=== PATIENT | male | born 1930 | race African-American/Black ===

== ENCOUNTER 2019-03-10 12:00 | Inpatient (IN) | payer BC, OTHER ==
[~2019-03-10] VITALS: Ht 182.9 cm; Wt 83.0 kg
[2019-03-10 12:03] VITALS: BP 165/60
[2019-03-10] MEDS ORDERED: FLOMAX0.4 MG PO (12:07)
[2019-03-10] MEDS ORDERED: LISINOPRIL40 MG PO (12:19)
[2019-03-10] MEDS ORDERED: CARVEDILOL25 MG PO (12:19)
[2019-03-10] MEDS ORDERED: HYDROCHLOROTH12.5 M2 PO (12:20)
[2019-03-10] MEDS ORDERED: LIPITOR40 MG PO (12:20)
[2019-03-10 12:27] LABS: ABSOLUTE EOSINOPHILS 0.2 thou/uL (0.0-0.7); ABSOLUTE LYMPHOCYTES 1.6 thou/uL (0.8-5.3); ABSOLUTE MONOCYTES 0.5 thou/uL (0.0-1.2); ABSOLUTE NEUTROPHILS 4.6 thou/uL (1.6-8.1); BASOPHILS 0.2 %; EOSINOPHILS 3.2 %; HEMATOCRIT 32.4 % (42.0-52.0); LYMPHOCYTES 23.2 %; MCH 29.1 pg (26.0-34.0); MCHC 33.9 g/dL (28.0-37.0); MCV 85.8 fL (80.0-100.0); MONOCYTES 6.7 %; MPV 9.4 fl. (7.2-11.1); NUCLEATED RBCS 0 /100WBC; PLATELET COUNT* 123 thou/uL (150-400); POLYS 66.7 %; RBC 3.78 mil/uL (4.50-6.00); RDW-CV 14.5 % (10.5-14.5); WBC 6.9 thou/uL (4.0-11.0)
[2019-03-10 12:34] LABS: ANION GAP 9 mmol/L (7-16); BUN 33 mg/dL (7-18); CALCIUM 8.6 mg/dL (8.5-10.1); CHLORIDE 107 mmol/L (98-107); CO2 27 mmol/L (21-32); CREATININE 1.9 mg/dL (0.6-1.3); GLUCOSE 130 mg/dL (70-99); POTASSIUM 3.6 mmol/L (3.5-5.1); SODIUM 143 mmol/L (136-145)
[2019-03-10 12:43] LABS: ALBUMIN 3.3 g/dL (3.4-5.0); ALKALINE PHOSPHATASE 44 U/L (46-116); LIPASE 53 U/L (73-393); SGOT 13 U/L (15-37); SGPT 16 U/L (30-65); TOTAL PROTEIN 6.8 g/dL (6.4-8.2); TROPONIN-I LEVEL <0.06 ng/mL (<0.06)
[2019-03-10 12:45] LABS: APTT 24.7 Seconds (25.0-31.3); INR 1.1; PROTIME 11.1 Seconds (9.20-11.50)
[2019-03-10 17:42] VITALS: BP 157/62
[2019-03-10 17:57] LABS: URINE BILIRUBIN NEGATIVE (Negative); URINE BLOOD NEGATIVE (Negative); URINE CLARITY CLEAR; URINE COLOR YELLOW; URINE GLUCOSE-RANDOM NEGATIVE (Negative); URINE KETONES NEGATIVE (Negative); URINE LEUKOCYTES-REFLEX NEGATIVE (Negative); URINE NITRITE-REFLEX NEGATIVE (Negative); URINE PROTEIN NEGATIVE (Negative); URINE SPECIFIC GRAVITY 1.015 (1.005-1.030); URINE UROBILINOGEN 0.2 E.U./dl (0.2-1.0)
[2019-03-10 18:11] VITALS: BP 175/72
[2019-03-11] VITALS: BP 165/68
[2019-03-11 04:30] VITALS: BP 142/66
[2019-03-11 05:40] LABS: CALCIUM 8.5 mg/dL (8.5-10.1); CREATININE 1.7 mg/dL (0.6-1.3); MAGNESIUM 1.4 mg/dL (1.8-2.4); PHOSPHORUS* 2.9 mg/dL (2.5-4.9)
--- NOTE | 2019-03-11 05:43 | NUR ---
PATIENT ADMITTED TO UNIT AT APPROX 1745. INTERFACE DEVELOPER ASSESSMENT COMPLETED DOCUMENTED. PATIENT AND SPOUSE VERBALIZED UNDERSTANDING OF ADMISSION AND PLAN OF CARE. NO COMPLAINTS OF PAIN OR DISCOMFORT NOTED. HOURLY ROUNDING COMPLETED CHARTED.
[2019-03-11 08:20] VITALS: BP 140/61
--- NOTE | 2019-03-11 09:49 | NUR ---
ASSUMED CARE OF PT THIS AM AROUND 07- BEACH ATTENDANT IN PLACE ORDERED, TRACING SB- UPON ASSESSMENT PT NOTED TO BE RESTING IN BED- PT A&O X4- CONTINENT OF BOWEL AND BLADDER- SBA WITH TRANSFERS- LCTA/DIMINISHED IN BASES; RESP EVEN AND UN-LABORED- VSS, O2 SAT 96% ON RA- ABD SOFT/ROUND/NON-TENDER, BS X4 QUADS- LAST BM REPORTED 03/10/19- IV NOTED TO LEFT AC INTACT, IVF INFUSSING- NPO THIS AM, CURRENLTY OFF UNIT FOR ORDERED US- PER CARDIOLOGY THIS AM COREG DECREASED TO 12.5 BID, AND HYDROCHLOROTIAZIDE INCREASED TO 25MG DAILY- PT DENIES ANY C/O PAIN/DISCOMFRT AT THIS TIME- CALL LIGHT AND PERSONAL BELONGINGS WITH IN REACH- HOURLY ROUNDS IN PLACE R/T SAFETY/NEEDS- ALL NEEDS MET AT THIS TIME-WCTM
[2019-03-11 12:00] VITALS: BP 156/63
--- NOTE | 2019-03-11 15:37 | NUR ---
WAS ASKED TO CHECK COPAY FOR ELIQUIS 10MG BID X7 AND THEN 5MG BID FOR REMAINDER OF MONTH. CALLED IN TO [facility]. COPAY THRU PRIMARY COVERAGE WAS $43.50, THEY WERE NOT ABLE TO RUN THRU PT'S AT THIS TIME. UPDATED CM AND NURSE TO DISCUSS WTIH PT
[2019-03-11 16:00] VITALS: BP 116/53
[2019-03-11 16:14] VITALS: BP 156/63
--- NOTE | 2019-03-11 16:38 | NUR ---
SW met with pt and pt . Pt and pt expressed that there are no dc needs anticipated. Pt lives at home with and is independent in all mobility and ADL tasks at home.
[2019-03-11] MEDS ORDERED: ELIQUIS5 MG PO (17:23)
[2019-03-11] MEDS ORDERED: COREG6.25 MG PO (17:24)
[2019-03-11] MEDS ORDERED: PANTOPRAZOLE SO40 M1 PO (17:25)
--- NOTE | 2019-03-11 18:42 | NUR ---
ORDERS RECEIEVIED FOR OKAY TO D/C TO HOME WITH FOLLOW UP WITH CARDIOLOGY OP THIS SHIFT PER - MG NOTED TO BE 1.4 WITH 1 IV BAG GIVEN PRIOR TO D/C INSTRUCTED- IV TO LEFT AC D/C'D ALONG WITH STAMP PAD MAKER PRIOR TO D/C- D/C TEACHING/EDUCATION/NEEDED FOLLOW UP'S COMMUNICATED TO PT AND WITH ALL QUESTIONS AND CONCERNS ADDRESSED PRIOR TO D/C- WRITTEN EDUCATION ALONG WITH SCRIPTS PROVIDED TO PT PRIOR TO D/C-COUPON FOR NEW ELIQUIS PROVDED PER CM THIS SHIFT- BELONGINGS PACKED AND ACCOUNTED FOR PER PT - PT ESCORTED PER TECH VIA W/C WITH BELONGINGS; AT SIDE TO VEHICLE AT 1840- NO PROBLEMS TO NOTE AT TIME OF D/C
== END 2019-03-11 18:46 | disposition home or self-care (01) | DRG 176 ==
LOC: M.ERS 12:00 → M.TBA-ER 14:36 → M.2W 14:36
PROVIDERS: Family Medicine; ADMIT Family Medicine
DX: I26.99 Other pulmonary embolism without acute cor pulmonale (principal); I10 Essential (primary) hypertension; E78.5 Hyperlipidemia, unspecified; R00.1 Bradycardia, unspecified; T50.905A Adverse effect of unspecified drugs, medicaments and biological substances, initial encounter; D64.9 Anemia, unspecified; N40.0 Benign prostatic hyperplasia without lower urinary tract symptoms; I73.9 Peripheral vascular disease, unspecified; Z88.0 Allergy status to penicillin; Z88.8 Allergy status to other drugs, medicaments and biological substances; Z79.899 Other long term (current) drug therapy; Y92.89 Other specified places as the place of occurrence of the external cause

== ENCOUNTER 2020-06-18 14:58 | Emergency (ER) | payer BC, OTHER ==
[~2020-06-18] VITALS: Ht 182.9 cm; Wt 81.7 kg
[~2020-06-18 14:58] MED LIST: CARVEDILOL25 MG PO; COREG6.25 MG PO; ELIQUIS5 MG PO; FLOMAX0.4 MG PO; HYDROCHLOROTH12.5 M2 PO; LIPITOR40 MG PO; LISINOPRIL40 MG PO; PANTOPRAZOLE SO40 M1 PO
[2020-06-18] MEDS ORDERED: CARVEDILOL25 MG PO (15:36)
[2020-06-18] MEDS ORDERED: MINOXIDIL2.5 MG PO (15:36)
[2020-06-18] MEDS ORDERED: ELIQUIS2.5 MG PO (15:37)
[2020-06-18] MEDS ORDERED: PREDNISONE 5 MG5 M1 PO (15:37)
[2020-06-18] MEDS ORDERED: NEURONTIN 300M300 M2 PO (15:38)
[2020-06-18 16:31] LABS: ABSOLUTE EOSINOPHILS 0.1 thou/uL (0.0-0.7); ABSOLUTE LYMPHOCYTES 0.9 thou/uL (0.8-5.3); ABSOLUTE MONOCYTES 0.2 thou/uL (0.0-1.2); ABSOLUTE NEUTROPHILS 6.1 thou/uL (1.6-8.1); BASOPHILS 0.3 %; EOSINOPHILS 1.2 %; HEMATOCRIT 30.6 % (42.0-52.0); HEMOGLOBIN 10.1 gm/dL (14.0-18.0); LYMPHOCYTES 12.5 %; MCH 27.9 pg (26.0-34.0); MCHC 32.8 g/dL (28.0-37.0); MONOCYTES 3.1 %; MPV 9.3 fl. (7.2-11.1); NUCLEATED RBCS 0 /100WBC; PLATELET COUNT* 133 thou/uL (150-400); POLYS 82.9 %; RDW-CV 17.9 % (10.5-14.5); WBC 7.4 thou/uL (4.0-11.0)
[2020-06-18 16:40] LABS: CALCIUM 7.8 mg/dL (8.5-10.1); CREATININE 1.5 mg/dL (0.6-1.3); POTASSIUM 3.5 mmol/L (3.5-5.1)
[2020-06-18 16:44] LABS: APTT 26.6 Seconds (25.0-31.3); INR 1.1; PROTIME 11.5 Seconds (9.20-11.50)
[2020-06-18 16:51] LABS: ALBUMIN 3.2 g/dL (3.4-5.0); TOTAL PROTEIN 6.2 g/dL (6.4-8.2)
[2020-06-18] MEDS ORDERED: BUMETANIDE0.5 MG PO (19:33)
[2020-06-18 19:51] VITALS: BP 188/80
--- NOTE | 2020-06-19 09:51 | EKG ---
[place] [address] ELECTROCARDIOGRAM REPORT Name: BETINA PAULA Room: [facility]#: [id number] Admission: 06/18/20 Attend Phys: Discharge: 06/18/20 Date of : [birth year] Date of Service: 06/18/20 1619 Report #: [id number] THIS REPORT FOR: //name// [facility] ED Test Date: 2020-06-18 Test Time: 16:19:16 Pat Name: BETINA PAULA Department: Room: Gender: Data Compiler: BEATRIZ : 1930 Requested By: Deepak Hsu Order Number: [id number] MD: Skip Lopez Measurements Intervals [place] Rate: 55 P: 43 MA: 134 QRS: -32 QRSD: 101 T: 22 QT: 454 QTc: 435 Interpretive Statements Sinus rhythm Left axis deviation Compared to ECG 03/10/2019 12:02:42 Left-axis deviation now present Sinus bradycardia no longer present Electronically Signed On 06-19-2020 9:51:15 FRENCH PROFESSOR by Skip Lopez [email or web address] <ELECTRONICALLY SIGNED> By: Nicholas Lopez MD, FAC 06/19/20 0951 1619 1619 Nicholas Lopez MD, [facility] /EPI
== END 2020-06-18 19:52 | disposition home or self-care (01) ==
LOC: M.ERS 14:58
PROVIDERS: Nurse Practitioner Psychiatric/Mental Health
DX: R60.0 Localized edema (principal); I10 Essential (primary) hypertension; R79.89 Other specified abnormal findings of blood chemistry; E78.00 Pure hypercholesterolemia, unspecified; G62.9 Polyneuropathy, unspecified; Z79.899 Other long term (current) drug therapy; Z88.0 Allergy status to penicillin

== ENCOUNTER → 2020-12-28 | Outpatient (CLI) | payer BC, OTHER ==
[~2020-12-28] MED LIST changes: +BUMETANIDE0.5 MG PO; +ELIQUIS2.5 MG PO; +MINOXIDIL2.5 MG PO; +NEURONTIN 300M300 M2 PO; +PREDNISONE 5 MG5 M1 PO
--- NOTE | 2020-12-28 14:16 | 2DMMODE ---
[place] [address] 2 D/M-MODE ECHOCARDIOGRAM Name: BETINA PAULA Room: [facility]#: [id number] Admission: 12/28/20 Attend Phys: Nicholas Lopez, Discharge: Date of : [birth year] Date of Service: 12/28/20 1415 Report #: [id number] THIS REPORT FOR: cc: Jose Lyman MD, Kevin R. MD Holkins, John M. MD [facility] ~ APPROVED REPORT Study performed: 12/28/2020 08:21:15 EXAM: Comprehensive 2D, Doppler, and color-flow Echocardiogram Patient Location: Out-Patient BSA: 1.88 HR: 63 bpm BP: 140/80 mmHg Other Information Study Quality: Good Indications Congestive Heart Failure 2D Dimensions IVSd: 17.77 (7-11mm) LVOT Diam: 20.14 (18-24mm) LVDd: 34.23 mm PWd: 15.15 (7-11mm) Ascending Ao: 32.15 (22-36mm) LVDs: 20.93 (25-40mm) Aortic Root: 31.96 mm Volumes Left Atrial Volume (Systole) LA ESV Index: 13.90 mL/m2 Aortic Valve AoV Peak Harris.: 0.93 m/s AO Peak Gr.: 3.45 mmHg LVOT Max P.34 mmHg AO Mean Gr.: 2.02 mmHg LVOT Mean P.56 mmHg LVOT Max V: 0.91 m/s AO V2 VTI: 20.41 cm LVOT Mean V: 0.57 m/s JOISAH (VTI): 3.71 cm2 LVOT V1 VTI: 23.76 cm Mitral Valve E/A Ratio: 0.48 [place] [address] 2 D/M-MODE ECHOCARDIOGRAM Name: BETINA PAULA Room: [facility]#: [id number] Admission: 12/28/20 Attend Phys: Nicholas Lopez, Discharge: Date of : [birth year] Date of Service: 12/28/20 1415 Report #: [id number] MV Decel. Time: 488.98 ms MV E Max Harris.: 0.39 m/s MV PHT: 141.80 ms MVA (PHT): 1.55 cm2 TDI E/Lateral E': 6.50 E/Medial E': 7.80 Medial E' Harris.: 0.05 m/s Lateral E' Harris.: 0.06 m/s Pulmonary Valve PV Peak Harris.: 0.76 m/s PV Peak Gr.: 2.33 mmHg Tricuspid Valve RAP Estimate: 5.00 mmHg TR Peak Gr.: 16.07 mmHg RVSP: 21.07 mmHg PA Pressure: 21.07 mmHg Left Ventricle The left ventricle is normal size. There is normal LV segmental wall motion. Moderate concentric left ventricular hypertrophy. Left ventricular systolic function is normal. The left ventricular ejection fraction is within the normal range. LVEF is 60-65%. Grade I - abnormal relaxation pattern. Right Ventricle The right ventricle is normal size. The right ventricular systolic function is normal. Atria Left atrium is mildly dilated. The right atrium size is normal. Aortic Valve Mild aortic valve sclerosis. Trace aortic regurgitation. There is no aortic valvular stenosis. Mitral Valve The mitral valve is normal in structure. Trace mitral regurgitation. No evidence of mitral valve stenosis. Tricuspid Valve The tricuspid valve is normal in structure. Mild tricuspid regurgitation[place] [address] 2 D/M-MODE ECHOCARDIOGRAM Name: BETINA PAULA Room: [facility]#: [id number] Admission: 12/28/20 Attend Phys: Nicholas Lopez, Discharge: Date of : [birth year] Date of Service: 12/28/20 1415 Report #: [id number] The pulmonary valve is normal in structure. Mild pulmonic regurgitation. Great Vessels The aortic root is normal in size. IVC is normal in size and collapses >50% with inspiration. Pericardium There is no pericardial effusion. <Conclusion> The left ventricle is normal size. Moderate concentric left ventricular hypertrophy. Left ventricular systolic function is normal. The left ventricular ejection fraction is within the normal range. LVEF is 60-65%. Grade I - abnormal relaxation pattern. The right ventricle is normal size. Left atrium is mildly dilated. The right atrium size is normal. Mild aortic valve sclerosis. Trace aortic regurgitation. There is no aortic valvular stenosis. The mitral valve is normal in structure. The tricuspid valve is normal in structure. Mild tricuspid regurgitation. IVC is normal in size and collapses >50% with inspiration. There is no pericardial effusion. There is normal LV segmental wall motion. <ELECTRONICALLY SIGNED> By: Rahul Hernandez MD, FACC 12/28/20 1415 141 141 Rahul Hernandez MD, FACC /INF
--- NOTE | 2020-12-28 17:16 | CARDNUC ---
[place] [address] CARDIAC NUCLEAR IMAGING REPORT Name: BETINA PAULA Room: [facility]#: [id number] Admission: 12/28/20 Attend Phys: Nicholas Lopez, Discharge: Date of : [birth year] Date of Service: 12/28/20 1715 Report #: [id number] THIS REPORT FOR: cc: Jose Lyman MD, Kevin R. MD Liston, Michael J. MD [facility] ~ APPROVED REPORT Imaging Protocol: Stress Tc-99m/Rest Tc-99m 1 day Study performed: 12/28/2020 09:15:00 Indication: Pre-Operative CV evaluation Patient Location: Out-Patient Stress Tech: Edwina Vargas Stress Nurse: Nancy Kaba RN Ht: 5 ft 9 in Wt: 175 lbs BSA: 1.95 m2 BMI: 25.84 Medical History Medical History: Carotid artery disease, CKD, HTN, Hyperlipidemia, CHF Medications: apixaban, carvedilol, lisinopril, klor con welchol bumetanide Allergies: amlodipine, penicillin Cardiac Risk Factors: Age, HTN, Hyperlipidemia, Tobacco History (Former) Exercise History: Sedentary Resting Data Rest SPECT myocardial perfusion imaging was performed in supine position 30 minutes following the intravenous injection of 11.4 mCi of Tc-99m Sestamibi. Time of rest injection: 09:35 The images were gated to evaluate regional wall motion and calculate left ventricular ejection fraction. Administration Route: IV Administration Site: Right Arm Pharmacologic Stress Pharmacologic stress test was performed by injecting Regadenoson 0.4 mg IV push over 10-15 seconds immediately followed by the intravenous injection of 33.0 mCi of Tc-99m Sestamibi. Time of stress injection: 11:50 [place] [address] CARDIAC NUCLEAR IMAGING REPORT Name: BETINA PAULA Room: [facility]#: [id number] Admission: 12/28/20 Attend Phys: Nicholas Lopez, Discharge: Date of : [birth year] Date of Service: 12/28/20 1715 Report #: [id number] Administration Route: IV Administration Site: Right Arm Heart Rate at time of stress injection: 69 bpm. Gated Stress SPECT was performed 40 minutes after stress injection. The images were gated to evaluate regional wall motion and calculate left ventricular ejection fraction. Stress Test Details Stress Test: Pharmacologic stress testing performed using 0.4 mg of regadenoson per 5 mL given IV over 10 seconds. Reason for pharmacologic stress test: physical limitation. 60 mg caffeine given for syncope. HR Max Heart Rate (APMHR): 131 bpm Resting HR: 57 bpm Target HR (85% APMHR): 111 bpm Max HR Achieved: 69 bpm % of APMHR: 52 Recovery HR: 65 bpm BP Resting BP: 151/69 mmHg Max BP: 143/47 mmHg Recovery BP: 137/75 mmHg ECG Resting ECG: Sinus Rhythm Stress ECG: Sinus Rhythm ST Change: None Arrhythmia: None Recovery ECG: Sinus Rhythm Recovery ST Change: None Recovery Arrhythmia: None Clinical Reason for Termination: Completed protocol The patient tolerated Lexiscan infusion without significant cardiac symptoms. Nurse Comments pt had hypotensive episode. pt placed in supine position and ns started. pt had large liquid bm. infused approx 250ml of ns. 60mg of caffeine given ivp. pt had full recovery Stress ECG Conclusion Baseline twelve-lead EKG shows sinus rhythm without significant ST segment or T wave abnormality. EKGs obtained during and post Lexiscan stress show sinus rhythm with no significant [place] [address] CARDIAC NUCLEAR IMAGING REPORT Name: BETINA PAULA Room: [facility]#: [id number] Admission: 12/28/20 Attend Phys: Nicholas Lopez, Discharge: Date of : [birth year] Date of Service: 12/28/20 1715 Report #: [id number] wave changes when compared to baseline. There were no stress-induced arrhythmias. Study Quality Study: Good Artifact: No artifact Study Data At rest, the left ventricular ejection fraction was 77%.. Post stress, the left ventricular ejection was 74%.. TID = 1.22. Perfusion Perfusion images obtained at rest and post Lexiscan stress show uniform uptake of the radioisotope throughout the myocardium. There were no defects to suggest infarct or ischemia. Wall Motion Normal left ventricular wall motion. Nuclear Conclusion ECG Findings: negative for ischemia Clinical Findings: negative for ischemia Nuclear Findings: negative for ischemia Exercise Capacity: not assessed Left Ventricular Function: normal Risk Study: low Perfusion images show no defect to suggest infarct or ischemia. Left ventricular systolic function appears normal on gated studies. This is a low risk study. <Conclusion> Baseline twelve-lead EKG shows sinus rhythm without significant ST segment or T wave abnormality. EKGs obtained during and post Lexiscan stress show sinus rhythm with no significant ST segment or T wave changes when compared to baseline. There were no stress-induced arrhythmias. <ELECTRONICALLY SIGNED> By: Gino Emanuel MD, FACC 12/28/20 1715 14 14 Gino Emanuel MD, FACC /INF
== END ==
LOC: M.NUC 12-21 12:57 → M.CRD 12-23 09:30 → M.NUC 12-23 09:30 → M.CRD 08:19
PROVIDERS: ATTEND Internal Medicine
DX: I07.1 Rheumatic tricuspid insufficiency (principal); Z01.818 Encounter for other preprocedural examination; I10 Essential (primary) hypertension; I37.1 Nonrheumatic pulmonary valve insufficiency; R55 Syncope and collapse